=== PATIENT | male | born 1960 | race Caucasian/White ===

== ENCOUNTER 2023-11-21 18:02 | Emergency (ER) | payer MEDICARE, MEDICAID ==
[~2023-11-21] VITALS: Ht 182.9 cm; Wt 93.0 kg
[2023-11-21] MEDS: ondansetron 4mg rapidly disintigrating tab PO ONE (19:45)
[2023-11-21] MEDS: morphine 10mg/ml inj. IM ONE (19:45)
[2023-11-21] MEDS ORDERED: HYDR-3965 PO (21:23)
[2023-11-21] MEDS: HYDROcodone/acetaminophen 10/325mg tab PO ONE (21:29)
[2023-11-21 21:38] VITALS: BP 119/77; PULSE 74; RESP 16; TEMP 97.7; O2SAT 98
== END 2023-11-21 21:40 | disposition home or self-care (01) ==
LOC: ER 18:04
DX: S62.630A Displaced fracture of distal phalanx of right index finger, initial encounter for closed fracture (principal); X58.XXXA Exposure to other specified factors, initial encounter; Y93.89 Activity, other specified; Y92.89 Other specified places as the place of occurrence of the external cause; Y99.8 Other external cause status
CPT/HCPCS: 73140; 96372; 99284; J2274; 99283

== ENCOUNTER 2024-11-25 16:26 | Emergency (ER) | payer MEDICARE, MEDICAID ==
[~2024-11-25] VITALS: Ht 182.9 cm; Wt 96.7 kg
[~2024-11-25 16:26] MED LIST: HYDR-3965 PO
[2024-11-25] MEDS ORDERED: AZIT250T83 PO (17:19)
[2024-11-25] MEDS ORDERED: PRED10TA23 PO (17:19)
[2024-11-25] MEDS: azithromycin 250mg tablet PO ONE (17:42)
[2024-11-25] MEDS: prednisone 10mg tablet PO ONE (17:42)
[2024-11-25 17:47] VITALS: BP 130/70; PULSE 74; RESP 18; TEMP 98.8; O2SAT 98
== END 2024-11-25 17:52 | disposition home or self-care (01) ==
LOC: ER 16:27
DX: H72.92 Unspecified perforation of tympanic membrane, left ear (principal)
CPT/HCPCS: 99283; J7512